=== PATIENT | female | born 1970 ===

== ENCOUNTER 2022-06-13 20:40 | Outpatient (CLI) | payer OTHER ==
--- NOTE | 2022-06-14 21:34 | Ultrasound Report ---
PROCEDURE: Pelvic w/Transvaginal INDICATIONS: EXCESSIVE AND FREQUENT MENSTRUATION TECHNIQUE: Real-time scanning was performed of the pelvic organs, with image documentation. Additional endovagi nal scanning was necessary due to incomplete visualization of the adnexal and endometrial structures by transabdominal scanning. COMPARISON: None. FINDINGS: Uterus: Uterus is anteverted and normal in size at 10.1 x 5.2 x 5.9 cm. The myometrium is heterogen eous. The endometrium measures 14.6 mm in combined thickness. There are multiple uterine leiomyomas . There is a 3.2 x 2.5 x 2.6 mm fibroid in the anterior mid uterine wall. A pedunculated 4.5 x 2.2 x 2. 7 cm fibroid is seen in the left lateral uterine wall. Another 1.0 x 1.9 x 1.0 cm pedunculated fibroi d is seen left lateral uterine wall. Ovaries: The right ovary measures 4.4 x 3.0 x 4.0 cm, with a calculated ovarian volume of 28 cc. Th ere is a 3.0 x 2.2 x 2.7 cm simple cyst in right ovary. The left ovary measures 2.5 x 1.7 x 2.1 cm, w ith a calculated ovarian volume of 14.6 cc. The ovaries have a normal sonographic appearance. Less than 12 follicles can be seen in each ovary. No adnexal masses are seen. Other: No pathologic free abdominal or pelvic fluid. IMPRESSION: 1. Uterus is enlarged with multiple uterine fibroids. 2. Prominent endometrium measuring 14.6 mm in combined thickness. The finding could be related to men ses. A follow-up imaging suggested in 6 weeks. 3. A 3.0 x 2.2 x 2.7 cm simple cyst in the right ovary. Reviewed by: Deshaun Cadet MD on 06/14/2022 9:33 PM PDT Approved by: Deshaun Cadet MD on 06/14/2022 9:33 PM PDT Station ID: [id number]
== END 2022-06-13 20:41 | disposition home or self-care (01) ==
LOC: DI 20:40
PROVIDERS: ATTEND Nurse Practitioner Obstetrics & Gynecology
DX: D25.9 Leiomyoma of uterus, unspecified (principal); N83.291 Other ovarian cyst, right side

== ENCOUNTER 2022-09-28 08:38 | Outpatient (CLI) | payer OTHER ==
--- NOTE | 2022-10-06 08:24 | Mammography Report ---
BILATERAL DIGITAL SCREENING MAMMOGRAM 3D/2D WITH AUGMENTATION: 09/28/2022 CLINICAL: Routine screening. Family history of breast cancer. Comparison is made to exam dated: 11/28/2018 mammogram - [facility]. There are scattered areas of fibroglandular density in both breasts (category b / 25%-50% glandular t issue). Bilateral breast implants are stable. No significant masses, calcifications, or other findings are seen in either breast. There has been no significant interval change. IMPRESSION: NEGATIVE There is no mammographic evidence of malignancy. A 1 year screening mammogram is recommended. Based on the Tyrer Cuzick model (a risk assessment model) the patients lifetime risk is 8.7% and her 10 year risk is 2.2%. According to the ACR, ACS, and NCCN guidelines, an annual breast MRI exam manan g with mammogram is recommended if the patients lifetime risk is 20% or greater. This exam was interpreted at Station ID: [id number]. NOTE: For mammograms, a report in lay terms will be sent to the patient. Approximately 15% of breast malignancies will not be visualized mammographically. In the management of a palpable breast mass, a negative mammogram must not discourage biopsy of a clinically suspicious lesion. Electronically Signed By: Jose R greene/juan:10/05/2022 11:38:46 ACR BI-RADS Category 1: Negative 3341F PARENCHYMAL PATTERN: (A) - The breast(s) demonstrate(s) scattered fibroglandular densities. BI-RADS CATEGORY: (1) - 1 RECOMMENDATION: (ANNUAL) - Recommend routine annual screening mammography. [id number] 1 year screening LATERALITY: (B)
== END 2022-09-28 08:39 | disposition home or self-care (01) ==
LOC: DI.S 08:38
DX: Z12.31 Encounter for screening mammogram for malignant neoplasm of breast (principal); Z80.3 Family history of malignant neoplasm of breast

== ENCOUNTER 2022-10-13 07:34 | Outpatient (CLI) | payer OTHER | END 2022-10-13 07:35 | disposition home or self-care (01) | LOC: LAB.S 07:34 | PROVIDERS: ATTEND Physician Assistant | DX: Z01.812 Encounter for preprocedural laboratory examination (principal); Z20.822 Contact with and (suspected) exposure to COVID-19 ==